=== PATIENT | female | born 1950 | race Caucasian/White ===

== ENCOUNTER 2018-08-25 16:45 | Emergency (ER) | payer OTHER, BC ==
[2018-08-25 17:01] VITALS: BP 159/98; PULSE 99; TEMP 97.2; BMI 29.2
--- NOTE | 2018-08-25 17:01 | PDOC ---
Rapid Medical Evaluation Medical Evaluation: Allergies Allergy/AdvReac Type Severity Reaction Status Date / Time No Known Allergies Allergy Verified 06/13/13 11:09 I have performed a brief in-person evaluation of this patient. The patient presents with a chief complaint of: Hx of asthma, SOB and throat closing sensation from few days ago; denies fever, chest pain; denies any allergies to anything; denies any rash Pertinent physical exam findings: Oropharynx clear, no angioedema, lungs clear I have ordered the following: Neck x-ray The patient will proceed to the ED for further evaluation. 08/25/18 16:55
--- NOTE | 2018-08-25 21:44 | PDOC ---
History of Present Illness - History of Present Illness Initial Comments: 08/25/18 21:42 67 yo F with h/o TIA, asthma who p/w dysphagia. Patient reports two days of globus sensation in lower part of throat with no dientifiable triggers or alleviators. States that today she felt, that her airway was closing up but denies difficulty swallowing foods and liquids. States that she woke up in the middle of the night gasping for air for the past two nights. Denies h/o sleep apnea, cpap use. Denies recent contact exposures, topical emoilents, new soaps/ detergents, bedding/clothing, pruitis, skin changes. H/o ICU intubation years ago for asthma exacerbation. Denies home O2 requirements, or increased duoneb use. Patient denies REINA, vision change, cough, wheezing, palpitations, leg pain/ swelling, N/V, F,C, CP, SOB, urinary complaints, abdominal pain, diarrhea, constipation, lightheadedness, weakness, sensory changes. PMHx: as noted above ROS: as noted SHx: Denies Etoh, IVDA. Distant tobacco use. Allergies: NKDA <Stas Hernandez - Last Filed: 08/25/18 22:34> <Citlaly Stephens - Last Filed: 08/25/18 22:49> - General Chief Complaint: Dysphagia Stated Complaint: Shortness of Breath Time Seen by Provider: 08/25/18 20:43 Past History - Past Medical History Asthma: Yes COPD: No - Surgical History Cholecystectomy: Yes - Suicide/Smoking/Psychosocial Hx Smoking Status: No Smoking History: Never smoked Number of Cigarettes Smoked Daily: 0 Hx Alcohol Use: No Drug/Substance Use Hx: No <Stas Hernandez - Last Filed: 08/25/18 22:34> <Citlaly Stephens - Last Filed: 08/25/18 22:49> - Past Medical History Allergies/Adverse Reactions: Allergies Allergy/AdvReac Type Severity Reaction Status Date / Time No Known Allergies Allergy Verified 08/25/18 16:56 Home Medications: Ambulatory Orders Benzonatate [Tessalon Perle] 100 mg PO TID PRN #30 capsule 12/08/12 Levalbuterol HCl [Xopenex] 1.25 mg IH QID 12/08/12 Acetaminophen W/ Codeine #3 [Tylenol # 3] 1 combo PO Q4H PRN #14 tablet Review of Systems - Review of Systems Comments:: 08/25/18 22:03 GENERAL/CONSTITUTIONAL: No fever or chills. No weakness. HEAD, EYES, EARS, NOSE AND THROAT: + Neck discomfort. No change in vision. No ear pain or discharge. No sore throat. CARDIOVASCULAR: No chest pain or shortness of breath RESPIRATORY: No cough, wheezing, or hemoptysis. GASTROINTESTINAL: No nausea, vomiting, diarrhea or constipation. GENITOURINARY: No dysuria, frequency, or change in urination. MUSCULOSKELETAL: No joint or muscle swelling or pain. No neck or back pain. SKIN: No rash NEUROLOGIC: No headache, vertigo, loss of consciousness, or change in strength/ sensation. ENDOCRINE: No increased thirst. No abnormal weight change HEMATOLOGIC/LYMPHATIC: No anemia, easy bleeding, or history of blood clots. ALLERGIC/IMMUNOLOGIC: No hives or skin allergy. <Stas Hernandez - Last Filed: 08/25/18 22:34> *Physical Exam - Vital Signs Last Vital Signs Temp Pulse Resp BP Pulse Ox 97.2 F L 99 H 24 H 159/98 99 08/25/18 16:56 08/25/18 16:56 08/25/18 16:56 08/25/18 16:56 08/25/18 16:56 - Physical Exam Comments: 08/25/18 22:03 GENERAL: Awake, alert, and fully oriented, in no acute distress HEAD: No signs of trauma, normocephalic, atraumatic EYES: PERRLA, EOMI, sclera anicteric, conjunctiva clear ENT: Auricles normal inspection, hearing grossly normal, nares patent, oropharynx clear without exudates. Moist mucosa NECK: Normal ROM, supple, no lymphadenopathy, JVD, or masses LUNGS: No distress, speaks full sentences, clear to auscultation bilaterally HEART: Regular rate and rhythm, normal S1 and S2, no murmurs, rubs or gallops, peripheral pulses normal and equal bilaterally. ABDOMEN: Soft, nontender, normoactive bowel sounds. No guarding, no rebound. No masses EXTREMITIES : Normal inspection, Normal range of motion, no edema. No clubbing or cyanosis. NEUROLOGICAL: Cranial nerves II through XII grossly intact. Normal speech, normal gait, no focal sensorimotor deficits SKIN: Warm, Dry, normal turgor, no rashes or lesions noted <Stas Hernandez - Last Filed: 08/25/18 22:34> - Vital Signs Last Vital Signs Temp Pulse Resp BP Pulse Ox 97.2 F L 99 H 24 H 159/98 99 08/25/18 16:56 08/25/18 16:56 08/25/18 16:56 08/25/18 16:56 08/25/18 16:56 <Citlaly Stephens - Last Filed: 08/25/18 22:49> Moderate Sedation - Procedure Monitoring Vital Signs: Procedure Monitoring Vital Signs Temperature 97.2 F L 08/25/18 16:56 Pulse Rate 99 H 08/25/18 16:56 Respiratory Rate 24 H 08/25/18 16:56 Blood Pressure 159/98 08/25/18 16:56 O2 Sat by Pulse Oximetry (%) 99 08/25/18 16:56 <Stas Hernandez - Last Filed: 08/25/18 22:34> - Procedure Monitoring Vital Signs: Procedure Monitoring Vital Signs Temperature 97.2 F L 08/25/18 16:56 Pulse Rate 99 H 08/25/18 16:56 Respiratory Rate 24 H 08/25/18 16:56 Blood Pressure 159/98 08/25/18 16:56 O2 Sat by Pulse Oximetry (%) 99 08/25/18 16:56 <Citlaly Stephens - Last Filed: 08/25/18 22:49> Medical Decision Making - Medical Decision Making 08/25/18 21:53 67 yo F with h/o TIA, asthma who p/w dysphagia. VSS, AF, A&Ox3. Physical exam unremarkable. Absent mucosal edema, wheezing. Low suspicion anaphylaxis, allergic reaction, asthma exacerbation, COPD, foreign body. Henry evaluate for oropharyngeal vs esophageal dysphagia. Patient with no acute neuro deficits on physical exam. Low suspicion CVA/TIA.Will consider esophageal spasm, achalasia, shatzki ring, stricture, diverticulum. Airway patent, VSS, will reassess. ED Course: 08/25/18 22:01 CT NECK:Possible Right Cord vocal paralysis. Recommended f/u with ENT. Patient airway intact, absent resp distress. Vitals wnl Stable for d/c with return precautions. Advised to f/u with PMD. <Stas Hernandez - Last Filed: 08/25/18 22:34> *DC/Admit/Observation/Transfer - Discharge Dispostion Decision to Admit order: No - Attestations Physician Attestion: 08/25/18 22:22 I attest to the information provided in this note. <Stas Hernandez - Last Filed: 08/25/18 22:34> <Citlaly Stephens - Last Filed: 08/25/18 22:49> Diagnosis at time of Disposition: Globus sensation - Discharge Dispostion Disposition: HOME Condition at time of disposition: Stable - Referrals Referrals: Anjum Parnell MD [Staff Physician] - - Patient Instructions Printed Discharge Instructions: DI for Esophageal Dysphagia Additional Instructions: Please return to the emergency department with any new or worsening symptoms or concerns. Please follow up with your primary care physician within 72 hours. Please follow up with ear, nose, throat doctor for possible unilateral vocal cord paralysis. Come back to ED with any shortness of breath, difficultly breathing.
--- NOTE | 2018-08-25 22:44 | PDOC ---
Attending Attestation - Resident Resident Name: Stas Hernandez - ED Attending Attestation I have performed the following: I have examined & evaluated the patient, The case was reviewed & discussed with the resident, I agree w/resident's findings & plan, Exceptions are as noted - HPI HPI: 08/25/18 22:43 67 yo female p/w complaint of globus sensation in her throat but was able to eat food and drink liquids - Physicial Exam PE: 08/25/18 22:54 wnwd 67 yo female with c/o dysphagia head ncat neck supple Oropharynx no exudates lungs cta b/l cvs [id number] abd no rebound,no guarding ext no edema skin warm and dry neuro axox3,ambulatory,motor strength 5/5,clear voice,no slurred speech - Medical Decision Making 08/25/18 22:57 ct scan of neck: no masses,no airway compromise seen,possible right cord paralysis ENT referral made 08/25/18 22:58
== END 2018-08-26 00:12 | disposition home or self-care (01) ==
LOC: JER 16:45
DX: F45.8 Other somatoform disorders (principal); J45.909 Unspecified asthma, uncomplicated; Z86.73 Personal history of transient ischemic attack (TIA), and cerebral infarction without residual deficits
CPT/HCPCS: 70360-TC-FY; 70490-TC; 99281-25